=== PATIENT | male | born 1955 | race Caucasian/White ===

== ENCOUNTER 2024-05-23 14:02 | Emergency (ER) | payer MEDICARE ==
[~2024-05-23] VITALS: Ht 177.8 cm; Wt 129.0 kg
[2024-05-23] MEDS ORDERED: MEDDOSEPAK PO (15:48)
[2024-05-23] MEDS ORDERED: TAM75CAP PO (15:48)
[2024-05-23 16:02] VITALS: BP 112/76
== END 2024-05-23 16:34 | disposition home or self-care (01) ==
LOC: ED 14:02
DX: J10.1 Influenza due to other identified influenza virus with other respiratory manifestations (principal); Z20.822 Contact with and (suspected) exposure to COVID-19